=== PATIENT | male | born 1995 | race African-American/Black ===

== ENCOUNTER 2017-02-09 09:45 | Inpatient (IN) | payer SELFPAY ==
[~2017-02-09] VITALS: Ht 167.6 cm; Wt 87.6 kg
[~2017-02-09 09:45] MED LIST: RISP.5 PO; SERT50TA12 PO
[2017-02-09 10:15] LABS: BASOPHILS % (AUTO) 0.7 % (0.0-2.0); EOSINOPHILS % (AUTO) 0.1 % (1.0-6.0); HEMATOCRIT 41.6 % (41-53); HEMOGLOBIN 13.6 g/dL (13.5-17.5); LYMPHOCYTES # (AUTO) 1.1 K/uL (1.0-4.8); LYMPHOCYTES % (AUTO) 11.6 % (22.0-44.0); MEAN CORPUSCULAR HEMOGLOBIN 29.5 pg (26.0-34.0); MEAN CORPUSCULAR HGB CONC 32.7 G/dL (31.0-37.0); MEAN CORPUSCULAR VOLUME 90 fL (80-100); MONOCYTES # (AUTO) 0.6 K/uL (0.1-1.0); MONOCYTES % (AUTO) 6.5 % (2.0-9.0); NEUTROPHILS % (AUTO) 81.1 % (40.0-70.0); PLATELET COUNT (AUTO) 239 K/uL (150-450); RED BLOOD CELL COUNT(AUTO) 4.61 MIL/uL (4.50-5.90); RED CELL DISTRIBUTION WIDTH 13.3 % (11.5-14.5); WHITE BLOOD COUNT (AUTO) 9.9 K/uL (4.5-11.0)
[2017-02-09] MEDS ORDERED: SODIUM CHLORIDE 0.9% 1,000 ML IV ONE (10:30)
[2017-02-09 10:33] LABS: ANION GAP 8 mmol/L (8-16); CALCIUM, TOTAL 8.6 mg/dL (8.8-10.5); CARBON DIOXIDE 28 mmol/L (22-29); CHLORIDE 105 mmol/L (98-107); CREATININE 1.01 mg/dL (0.60-1.30); GLOMERULAR FILTR. RATE CALC > 60 mL/min (>60); POTASSIUM 3.4 mmol/L (3.5-5.1); SODIUM SERUM 141 mmol/L (136-145); UREA NITROGEN, BLOOD 9 mg/dL (7-18)
[2017-02-09 10:39] LABS: ALANINE AMINOTRANSFERASE 17 U/L (12-78); ALBUMIN 3.6 g/dL (3.4-5.0); ASPARTATE AMINOTRANSFERASE 19 U/L (15-37); BILIRUBIN,TOTAL 0.5 mg/dL (0.1-1.0); TOTAL PROTEIN, SERUM 7.1 g/dL (6.4-8.2)
[2017-02-09] MEDS ORDERED: LORazepam 2 MG/ML VIAL IM ONE (11:15)
[2017-02-09] MEDS ORDERED: HALOPERIDOL LACTATE 5 MG/ML VIAL IM ONE (11:15)
[2017-02-09] MEDS ORDERED: DiphenhydrAMINE HCL 50 MG/ML VIAL IM ONE (11:15)
[2017-02-09] MEDS ORDERED: PERTUSS(ACELL),DIPH,TET VAC/PF 0.5 ML VIAL IM ONE (13:00)
[2017-02-09] MEDS ORDERED: POTASSIUM CHLORIDE 10% 40 MEQ/30 ML LIQUID UDCUP PO ONE (13:00)
[2017-02-09 16:14] VITALS: BP 132/82
[2017-02-09] MEDS: BACITRACIN 28.4 GM OINTMENT TP SCH (17:12)
[2017-02-10] MEDS: QUEtiapine FUMARATE 100 MG TABLET PO SCH ×2 (08:13→16:20)
[2017-02-10] MEDS: BACITRACIN 28.4 GM OINTMENT TP SCH ×2 (08:13→16:21)
[2017-02-10] MEDS: NICOTINE 21 MG/24 HOUR PATCH TD SCH (08:13)
[2017-02-10 08:26] VITALS: BP 121/80
[2017-02-10] MEDS ORDERED: ACETAMINOPHEN 325 MG TABLET PO PRN (08:30)
[2017-02-10] MEDS ORDERED: IBUPROFEN 600 MG TABLET PO PRN (08:30)
[2017-02-10] MEDS ORDERED: LOPERAMIDE HCL 2 MG CAPSULE PO PRN (08:30)
[2017-02-10] MEDS ORDERED: ONDANSETRON HCL 4 MG TABLET PO PRN (08:30)
[2017-02-10] MEDS ORDERED: MAGNESIUM HYDROXIDE SUSPENSION 30 ML UDCUP PO PRN (08:30)
[2017-02-10] MEDS ORDERED: CloNIDine HCL 0.1 MG TABLET PO PRN (08:30)
[2017-02-10] MEDS ORDERED: PETROLATUM,WHITE 71 GM JELLY TP PRN (08:30)
[2017-02-10] MEDS ORDERED: ALBUTEROL SULFATE HFA 90 MCG/PUFF 8 GM INHALER IH PRN (08:30)
[2017-02-10] MEDS ORDERED: MAG HYDROX/AL HYDROX/SIMETH ES 30 ML SUSPENSION UDCUP PO PRN (08:30)
[2017-02-10] MEDS ORDERED: BENZOCAINE/MENTHOL LOZENGE MM PRN (08:30)
[2017-02-10] MEDS ORDERED: BACITRACIN 28.4 GM OINTMENT TP PRN (08:30)
[2017-02-10] MEDS: CHOLECALCIFEROL (VIT D3) 1,000 UNITS TABLET PO SCH (09:25)
[2017-02-10 16:00] VITALS: BP 118/73
[2017-02-10] MEDS: LORazepam 2 MG TABLET PO PRN (16:20)
[2017-02-10] MEDS: HALOPERIDOL 5 MG TABLET PO PRN (16:21)
[2017-02-11] MEDS: QUEtiapine FUMARATE 100 MG TABLET PO SCH ×2 (07:55→16:08)
[2017-02-11] MEDS: CHOLECALCIFEROL (VIT D3) 1,000 UNITS TABLET PO SCH (07:55)
[2017-02-11] MEDS: NICOTINE 21 MG/24 HOUR PATCH TD SCH (07:56)
[2017-02-11] MEDS: BACITRACIN 28.4 GM OINTMENT TP SCH ×2 (07:56→16:48)
[2017-02-11 08:22] VITALS: BP 135/71
[2017-02-11] MEDS: LORazepam 2 MG TABLET PO PRN (16:08)
[2017-02-11 16:13] VITALS: BP 140/87
[2017-02-11] MEDS: ZOLPIDEM TARTRATE 10 MG TABLET PO PRN (22:25)
[2017-02-12 06:20] VITALS: BP 118/68
[2017-02-12] MEDS: CHOLECALCIFEROL (VIT D3) 1,000 UNITS TABLET PO SCH (08:14)
[2017-02-12] MEDS: QUEtiapine FUMARATE 100 MG TABLET PO SCH ×2 (08:14→16:02)
[2017-02-12] MEDS: NICOTINE 21 MG/24 HOUR PATCH TD SCH (08:14)
[2017-02-12] MEDS: BACITRACIN 28.4 GM OINTMENT TP SCH ×2 (08:14→16:03)
[2017-02-12 08:32] VITALS: BP 125/77
[2017-02-12 16:00] VITALS: BP 133/70
[2017-02-12] MEDS: LORazepam 2 MG TABLET PO PRN (16:02)
[2017-02-13 00:06] VITALS: BP 123/78
[2017-02-13] MEDS: ZOLPIDEM TARTRATE 10 MG TABLET PO PRN ×2 (01:19→20:36)
[2017-02-13] MEDS: LORazepam 2 MG TABLET PO PRN ×3 (02:20→20:36)
[2017-02-13] MEDS: HALOPERIDOL 5 MG TABLET PO PRN (02:20)
[2017-02-13 08:13] VITALS: BP 108/59
[2017-02-13] MEDS: BACITRACIN 28.4 GM OINTMENT TP SCH ×2 (08:38→16:37)
[2017-02-13] MEDS: CHOLECALCIFEROL (VIT D3) 1,000 UNITS TABLET PO SCH (08:38)
[2017-02-13] MEDS: QUEtiapine FUMARATE 100 MG TABLET PO SCH ×2 (08:38→16:36)
[2017-02-13] MEDS: NICOTINE 21 MG/24 HOUR PATCH TD SCH (08:39)
[2017-02-13 16:00] VITALS: BP 128/63
[2017-02-14 05:36] VITALS: BP 111/68
[2017-02-14 08:58] VITALS: BP 106/69
[2017-02-14] MEDS ORDERED: QUEtiapine FUMARATE 100 MG TABLET PO SCH (09:00)
[2017-02-14] MEDS: BACITRACIN 28.4 GM OINTMENT TP SCH (09:05)
[2017-02-14] MEDS: CHOLECALCIFEROL (VIT D3) 1,000 UNITS TABLET PO SCH (09:06)
[2017-02-14] MEDS: NICOTINE 21 MG/24 HOUR PATCH TD SCH (09:06)
[2017-02-14] MEDS ORDERED: QUET100T PO (13:15)
[2017-02-14] MEDS ORDERED: QUET200T PO (13:15)
[2017-02-14] MEDS ORDERED: QUEtiapine FUMARATE 200 MG TABLET PO SCH (21:00)
== END 2017-02-14 14:45 | disposition home or self-care (01) | DRG 885 ==
LOC: EEVIPCON 09:48 → EMS 09:48 → B3A 12:41
PROVIDERS: ADMIT Psychiatry & Neurology Psychiatry; ATTEND Psychiatry & Neurology Psychiatry
DX: F25.0 Schizoaffective disorder, bipolar type (principal); F14.20 Cocaine dependence, uncomplicated; R45.851 Suicidal ideations; J45.909 Unspecified asthma, uncomplicated; F12.90 Cannabis use, unspecified, uncomplicated; K59.00 Constipation, unspecified; F17.200 Nicotine dependence, unspecified, uncomplicated; F19.10 Other psychoactive substance abuse, uncomplicated; Z71.6 Tobacco abuse counseling; Z91.018 Allergy to other foods; Z71.51 Drug abuse counseling and surveillance of drug abuser; Z59.0 Homelessness; Z78.1 Physical restraint status; Z79.899 Other long term (current) drug therapy
CPT/HCPCS: 51702; 84132; 90471; 90715; 96360; 96361; 96372; 99285; G0480; J1200; J1630; J2060; J7030

== ENCOUNTER 2017-02-15 20:43 | Inpatient (IN) | payer MEDICAID ==
[~2017-02-15] VITALS: Ht 167.6 cm; Wt 84.3 kg
[~2017-02-15 20:43] MED LIST changes: +QUET100T PO; +QUET200T PO; -RISP.5 PO; -SERT50TA12 PO
[2017-02-15] MEDS ORDERED: LORazepam 2 MG/ML VIAL IM ONE (21:30)
[2017-02-15] MEDS ORDERED: DiphenhydrAMINE HCL 50 MG/ML VIAL IM ONE (21:30)
[2017-02-15] MEDS ORDERED: HALOPERIDOL LACTATE 5 MG/ML VIAL IM ONE (21:30)
[2017-02-15 21:38] VITALS: BP 132/75
[2017-02-15 22:08] VITALS: BP 128/71
[2017-02-16] MEDS: LORazepam 2 MG TABLET PO PRN ×3 (09:04→20:44)
[2017-02-16] MEDS: QUEtiapine FUMARATE 100 MG TABLET PO SCH (09:04)
[2017-02-16 16:11] VITALS: BP 124/73
[2017-02-16] MEDS: QUEtiapine FUMARATE 200 MG TABLET PO SCH (20:44)
[2017-02-16] MEDS: ZOLPIDEM TARTRATE 10 MG TABLET PO PRN (21:40)
[2017-02-17 08:00] VITALS: BP 151/74
[2017-02-17] MEDS: QUEtiapine FUMARATE 100 MG TABLET PO SCH (09:04)
[2017-02-17] MEDS: LORazepam 2 MG TABLET PO PRN ×2 (13:27→17:48)
[2017-02-17 16:08] VITALS: BP 116/68
[2017-02-17] MEDS ORDERED: DiphenhydrAMINE HCL 50 MG/ML VIAL ONE (18:25)
[2017-02-17] MEDS ORDERED: LORazepam 2 MG/ML VIAL ONE (18:25)
[2017-02-17] MEDS ORDERED: HALOPERIDOL LACTATE 5 MG/ML VIAL ONE (18:25)
[2017-02-17] MEDS: QUEtiapine FUMARATE 200 MG TABLET PO SCH (20:13)
[2017-02-18] MEDS: ZOLPIDEM TARTRATE 10 MG TABLET PO PRN (01:57)
[2017-02-18] MEDS: LORazepam 2 MG TABLET PO PRN ×2 (01:57→08:49)
[2017-02-18 02:05] VITALS: BP 112/79
[2017-02-18 08:28] VITALS: BP 113/70
[2017-02-18] MEDS: QUEtiapine FUMARATE 100 MG TABLET PO SCH (08:49)
== END 2017-02-18 16:15 | disposition home or self-care (01) | DRG 750 ==
LOC: B3A 22:34 → EDSTATUS 22:41
PROVIDERS: ADMIT Psychiatry & Neurology Psychiatry; ATTEND Psychiatry & Neurology Psychiatry
DX: F25.0 Schizoaffective disorder, bipolar type (principal); Z59.0 Homelessness; F41.9 Anxiety disorder, unspecified; F14.90 Cocaine use, unspecified, uncomplicated; F17.200 Nicotine dependence, unspecified, uncomplicated; Z71.51 Drug abuse counseling and surveillance of drug abuser
CPT/HCPCS: 87081; J1200; J1630; J2060

== ENCOUNTER 2017-11-17 21:35 | Emergency (ER) | payer MEDICAID ==
[~2017-11-17] VITALS: Ht 167.6 cm; Wt 86.4 kg
[2017-11-17] MEDS ORDERED: PERTUSS(ACELL),DIPH,TET VAC/PF 0.5 ML VIAL IM ONE (22:15)
[2017-11-17] MEDS ORDERED: BACITRACIN 0.9 GM PACKET OINTMENT TP ONE (22:15)
[2017-11-17] MEDS ORDERED: BUPIVACAINE HCL/PF 0.25% 10 ML VIAL INJ ONE (22:30)
[2017-11-17] MEDS ORDERED: BUPIVACAINE 0.25%/EPI 1:200,000/PF 10 ML VIAL PERC ONE (22:30)
[2017-11-17 22:57] VITALS: BP 111/62
== END 2017-11-17 22:58 | disposition home or self-care (01) ==
LOC: EMS 21:36
DX: S81.812A Laceration without foreign body, left lower leg, initial encounter (principal); S31.133A Puncture wound of abdominal wall without foreign body, right lower quadrant without penetration into peritoneal cavity, initial encounter; S30.811A Abrasion of abdominal wall, initial encounter; F20.0 Paranoid schizophrenia; F17.200 Nicotine dependence, unspecified, uncomplicated; J45.909 Unspecified asthma, uncomplicated; Z02.89 Encounter for other administrative examinations; Z88.8 Allergy status to other drugs, medicaments and biological substances; Z91.030 Bee allergy status; W54.0XXA Bitten by dog, initial encounter; Y93.89 Activity, other specified; Y92.89 Other specified places as the place of occurrence of the external cause; Y99.8 Other external cause status
CPT/HCPCS: 12002; 90471; 90715; 93005; 99283; J3490